=== PATIENT | male | born 1970 | race Caucasian/White ===

== ENCOUNTER 2019-02-24 07:20 | Emergency (ER) | payer MEDICAID ==
[~2019-02-24] VITALS: Wt 90.6 kg
[~2019-02-24 07:20] MED LIST: ACET325T33 PO; BACTDS PO; CEPH-443 PO; FAMO-96 PO; IBUP-1542 PO
[2019-02-24 07:22] VITALS: BP 130/64; PULSE 66; RESP 18
[2019-02-24] MEDS ORDERED: DICL100G37 TOP (08:34)
[2019-02-24] MEDS ORDERED: TRAM50TA2 PO (08:34)
[2019-02-24] MEDS ORDERED: NAPR-985 PO (08:34)
--- NOTE | 2019-02-24 08:50 | ERD ---
ER Documentation Chief Complaint Chief Complaint non traumatic left knee pain for 1 wk, no deformity noted. mild swelling HPI 48-year-old male presenting with non traumatic knee pain x1 week. Denies any falls or injuries. His pain is worse with walking. He has no pain with palpation. He has not taken medications for symptoms. Denies any fevers. Denies swelling. Denies numbness or tingling. Denies medical problems. NKDA. Surgical history denies. Social history denies ROS All systems reviewed and are negative except as per history of present illness. Medications Home Meds Active Scripts Diclofenac Sodium* (Voltaren* Gel) 1% -100 Gm Gel, 4 GM TOP QID, #1 TUB Prov:YADI OQUENDO PA-C 02/24/19 Naproxen* (Naprosyn*) 500 Mg Tablet, 500 MG PO BID PRN for PAIN AND/OR INFLAMMATION, #30 TAB Prov:YADI OQUENDO PA-C 02/24/19 Tramadol HCl (Tramadol HCl) 50 Mg Tablet, 50 MG PO Q4 PRN for PAIN, #20 TAB Prov:YADI OQUENDO PA-C 02/24/19 Ibuprofen* (Motrin*) 600 Mg Tab, 600 MG PO Q6H PRN for PAIN AND OR ELEVATED TEMP, #30 TAB Prov:WILDER OLSON NP 08/03/16 Cephalexin* (Keflex*) 500 Mg Capsule, 500 MG PO QID for 10 Days, CAP Prov:WILDER OLSON NP 08/03/16 Sulfamethoxazole-Trimethoprim* (Bactrim* DS) 800-160 Mg Tab, 1 TAB PO BID for 10 Days, TAB Prov:WILDER OLSON NP 08/03/16 Famotidine* (Pepcid*) 20 Mg Tablet, 20 MG PO BID for 4 Days, TAB Prov:YADI OQUENDO PA-C 07/01/15 Acetaminophen* (Tylenol*) 325 Mg Tablet, 2 TAB PO Q8 PRN for PAIN AND OR ELEVATED TEMP, #20 TAB Prov:YADI OQUENDO PA-C 07/01/15 Allergies Allergies: Coded Allergies: No Known Allergy (Unverified , 08/03/16) PMhx/Soc Medical and Surgical Hx: pt denies Surgical Hx Hx Miscellaneous Medical Probl: Yes (dm, not taking meds) Hx Alcohol Use: No Hx Substance Use: No Hx Tobacco Use: No Smoking Status: Current some day smoker FmHx Family History: No diabetes, No coronary disease, No other Physical Exam Vitals Vital Signs Date Temp Pulse Resp B/P (MAP) Pulse Ox O2 O2 Flow FiO2 Time Delivery Rate 02/24/19 98.0 66 18 130/64 99 07:22 (86) Physical Exam GENERAL: The patient is well-appearing, well-nourished, in no acute distress CHEST: Clear to auscultation bilaterally. There are no rales, wheezes or rhonchi. HEART: Regular rate and rhythm. No murmurs, clicks, rubs or gallops. EXTREMITIES: Equal pulses bilaterally. There is no peripheral clubbing, cyanosis or edema. No focal swelling or erythema. Full range of motion. Grossly neurovascularly intact. NEUROLOGIC: Alert and oriented. Cranial nerves II through XII intact. Motor strength in all 4 extremities with 5 out of 5 strength. Sensation grossly intact. Normal speech and gait. SKIN: There is no apparent rash or petechiae. The skin is warm and dry. Procedures/MDM DIAGNOSTIC IMAGING REPORT Patient: SARA FRANCIS : 1970 Age: 48 Sex: M MR #: [id number] DOS: 02/24/19732 Ordering MD: ALIYA OQUENDO PA-C Location: [facility] Room/Bed: PROCEDURE: US Lower extremity Venous. CLINICAL INDICATION: leg edema, pain TECHNIQUE: Multiple sonographic images of the left lower extremity deep venous system was obtained utilizing grayscale, color-flow, compressive sonography and doppler imaging with augmentation. The images were reviewed on a PACS workstation. COMPARISON: None. FINDINGS: There is normal compressibility and flow within the left common femoral, f emoral, posterior tibial, peroneal and popliteal veins. RPTAT: AA IMPRESSION: No sonographic evidence for deep venous thrombosis. DIAGNOSTIC IMAGING REPORT Patient: SARA FRANCIS : 1970 Age: 48 Sex: M MR #: [id number] DOS: 02/24/19 0733 Ordering MD: ALIYA OQUENDO PA-C Location: [facility] Room/Bed: PROCEDURE: Left knee x-ray CLINICAL INDICATION: Knee pain TECHNIQUE: AP, lateral and tunnel views of the left knee were obtained. COMPARISON: None FINDINGS: There is normal mineralization. There is marked irregularity and resorption of the superior patella, suspicious for chondromalacia patella. There is a small left knee joint effusion. There is no acute fracture. RPTAT: AA IMPRESSION: Findings suspicious for chondromalacia patella. Follow-up MRI is recommended. Small left knee joint effusion. MDM: 48-year-old male presenting with knee pain. Patient has findings consistent with arthritic changes. I have low suspicion for vascular injury. I have low suspicion for acute fracture dislocation. I have low suspicion for infectious process. Patient is discharged with strict ER precautions and told to follow-up with primary care within 1 to 2 days for close evaluation. Patient is told symptoms change or worsen to return immediately to the ER. All questions answered at discharge Departure Diagnosis: Primary Impression: Knee pain Condition: Stable Patient Instructions: Osteoarthritis: Coping with Pain Referrals: [facility] YOU HAVE RECEIVED A MEDICAL SCREENING EXAM AND THE RESULTS INDICATE THAT YOU DO NOT HAVE A CONDITION THAT REQUIRES URGENT TREATMENT IN THE EMERGENCY DEPARTMENT. FURTHER EVALUATION AND TREATMENT OF YOUR CONDITION CAN WAIT UNTIL YOU ARE SEEN IN YOUR DOCTORS OFFICE WITHIN THE NEXT 1-2 DAYS. IT IS YOUR RESPONSIBILITY TO MAKE AN APPOINTMENT FOR FOLOW-UP CARE. IF YOU HAVE A PRIMARY DOCTOR --you should call your primary doctor and schedule an appointment IF YOU DO NOT HAVE A PRIMARY DOCTOR YOU CAN CALL OUR PHYSICIAN REFERRAL HOTLINE AT IF YOU CAN NOT AFFORD TO SEE A PHYSICIAN YOU CAN CHOSE FROM THE FOLLOWING [facility] [address] [facility] [address] [facility] [address] [facility]. [facility] [address] [facility]. [facility] [address] [facility]. [facility]. [address] Additional Instructions: FOLLOW UP WITH YOUR PRIMARY CARE PHYSICIAN TOMORROW.Return to this facility if you are not improving as expected. YADI OQUENDO PA-C Feb 24, 2019 08:50
== END 2019-02-24 08:41 | disposition home or self-care (01) ==
LOC: FTE 07:20
DX: M25.562 Pain in left knee (principal); E11.9 Type 2 diabetes mellitus without complications; F17.210 Nicotine dependence, cigarettes, uncomplicated
CPT/HCPCS: 73562; 93971; Z7502